=== PATIENT | female | born 1975 | race Caucasian/White ===

== ENCOUNTER 2016-07-30 19:07 | Emergency (ER) | payer OTHER ==
[2016-07-30 19:26] VITALS: BP 135/97; BMI 28.3
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
--- NOTE | 2016-07-30 20:39 | RAD ---
EXAM: Cervical spine x-ray INDICATION: Neck pain COMPARISION: No priors available for comparison TECHNIQUE: AP, lateral, oblique, and odontoid, 5 views FINDINGS: There is normal alignment of the cervical spine. The disc and vertebral body heights are preserved. The facets are intact. The neural foramen are patent. The soft tissues are normal. IMPRESSION: Normal cervical spine x-ray examination Reported By:
[2016-07-30] MEDS ORDERED: TORADOL 60 MG VIAL IM ONE (20:45)
[2016-07-30] MEDS ORDERED: TORADOL 60 MG VIAL ONE (20:54)
== END 2016-07-30 21:35 | disposition home or self-care (01) ==
LOC: ER 19:36
DX: S13.4XXA Sprain of ligaments of cervical spine, initial encounter (principal); R51 Headache; V49.9XXA Car occupant (driver) (passenger) injured in unspecified traffic accident, initial encounter
CPT/HCPCS: 70450; 72050; 96372; 99282; 99283; J1885

== ENCOUNTER 2016-10-27 04:44 | Emergency (ER) | payer SELFPAY ==
[2016-10-27 04:52] VITALS: BP 144/88; BMI 28.3
--- NOTE | 2016-10-27 05:17 | DR.GENAD ---
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 - Family History History of Family Medical Conditions: Yes Family Medical History: Diabetes Mellitus, Cancer, Hypertension - Social History Type of Tobacco Use: Cigarettes Does any household member use tobacco: No Alcohol Use: None Do you use any recreational Drugs:: Yes (PAIN PILLS) Lives With: Family Lives Where: Home - infectious screening In the last 2 months have you had wt loss of >10#?: NO Have you had fever, night sweats or hemotysis?: No Have you traveled outside the country in the last 6 months?: No Isolation: Standard PE - Vital Signs Vitals: Temperature 98.6 F Pulse Rate 94 Respiratory Rate 18 Blood Pressure [Right Arm] 102/68 Blood Pressure 144/88 O2 Sat by Pulse Oximetry 100 - Discharge Plan Condition: Stable - Follow ups/Referrals Follow ups/Referrals: NFD,None [Primary Care Provider] - 3 days - Instructions
== END 2016-10-27 05:00 | disposition left against medical advice (07) ==
LOC: ER 04:44
DX: R50.9 Fever, unspecified (principal)
CPT/HCPCS: 99281

== ENCOUNTER 2016-12-29 11:12 | Emergency (ER) | payer SELFPAY ==
[2016-12-29 11:16] VITALS: BMI 25.7
--- NOTE | 2016-12-29 12:06 | DR.GENAD ---
HPI - PCP Primary Care Physician: [email or web address] - HPI Comment HPI Comment: INITIALY, ONE SWELLING AND NOW IS 3. PATIENT WORSE TODAY. NO FEVR. - Complaint/Symptoms Chief Complaint Doctors Comments: REDNESS PAIN AND PALPABLE CORDS LEFT ELBOW TIMES 2 WEEKS. Chief Complaint:: patient stated she has 3 knots on her left arm. 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 - Family History History of Family Medical Conditions: Yes Family Medical History: Diabetes Mellitus, Cancer, Hypertension - Social History Does patient currently use any type of tobacco product: Yes Have you used tobacco products in the last 12 months: Yes Type of Tobacco Use: Cigarettes How many years tobacco product used: 28 Does any household member use tobacco: No Alcohol Use: None Do you use any recreational Drugs:: Yes (PAIN PILLS) Lives With: Family Lives Where: Home - infectious screening In the last 2 months have you had wt loss of >10#?: NO Have you had fever, night sweats or hemotysis?: No Have you traveled outside the country in the last 6 months?: No Isolation: Standard ROS - Review of Systems Constitutional: Other. negative: Chills, Fever Eyes: No Symptoms Reported ENTM: No Symptoms Reported Respiratoy: No Symptoms Reported Cardiovascular: No Symptoms Reported Gastrointestinal/Abdominal: No Symptoms Reported Genitourinary: No Symptoms Reported Neurological: No Symptoms Reported Musculoskeletal: Left, Arm Integumentary: No Symptoms Reported Hematologic/Lymphatic: No Symptoms Reported Endocrine: No Symptoms Reported All Other Systems: Reviewed and Negative PE - Vital Signs Vitals: Temperature 98.6 F Pulse Rate [Right Brachial] 118 Pulse Rate 130 Respiratory Rate 18 Blood Pressure [Right Arm] 137/87 Blood Pressure 157/98 O2 Sat by Pulse Oximetry 100 - General Limitations: No Limitations General Appearance: Alert - Head Head Exam: Normal Inspection - Eyes Eye exam: Normal Appearance - ENT ENT Exam: Normal External Ear Exam External Ear Exam: Normal External Inspection TM/Canal Exam: Bilateral Normal Nose Exam: Normal Nose Exam Mouth Exam: Normal Inspection Throat Exam: Normal Inspection - Neck Neck Exam: Normal Inspection - Chest Chest Inspection: Symmetric Chest Wall Rise - Respiratory Respiratory Exam: Normal Lung Sounds Bilat Respiratory Exam: Bilateral Clear to Auscultation - Cardiovascular Cardiovascular Exam: Regular Rate, Normal Rhythm, Normal Heart Sounds - Abdominal Exam Abdominal Exam: Normal Bowel Sounds, Soft. negative: Tenderness - Extremities Extremities Exam: Other (REDNESS REDERNESS AND PALPABLE CORD LEFT INNER ELBOW.) - Back Back Exam: Normal Inspection - Neurologic Neurological Exam: Alert, Oriented X3 - Psychiatric Psychiatric Exam: Anxious - Skin Skin Exam: Erythema (LT INNER ELBOW RED AND TENDER.) MDM - Differential Diagnosis Differential Diagnosis: CELLULITIS LT ELBOW, DVT LT ELBOW, ABSCESS LT ELBOW. Course - Treatment Treatment: SEE ORDERS. IV ZOSYN ZND VANCOMYCIN IN ED. PATIENT LEFT ED AFTER ADMITTED TO HOSPITAL. - Education/Counseling Education/Counseling: Patient, Education Educated On: Treatment, Diagnosis ROR - Labs Reviewed Laboratory Results Reviewed?: Yes Result Diagrams: 12/29/16 12:40 12/29/16 12:40 Laboratory: WBC 12.2 X10^3/uL (3.6-10.0) H 12/29/16 12:40 RBC 4.66 X10^6/uL (3.5-5.4) 12/29/16 12:40 Hgb 14.6 g/dL (12.0-16.0) 12/29/16 12:40 Hct 43.3 % (36.0-47.0) 12/29/16 12:40 MCV 92.9 fL (80.0-100.0) 12/29/16 12:40 MCH 31.4 pg (27.0-34.0) 12/29/16 12:40 MCHC 33.8 g/dL (33.0-35.0) 12/29/16 12:40 RDW 13.0 % (11.6-16.5) 12/29/16 12:40 Plt Count 338 X10^3/uL (150.0-450.0) 12/29/16 12:40 MPV 9.5 fL (7.4-11.0) 12/29/16 12:40 Neut % 68.9 % (42.0-75.0) 12/29/16 12:40 Lymph % 23.4 % (21.0-51.0) 12/29/16 12:40 [place] % 5.6 % (0.0-13.0) 12/29/16 12:40 Eos % 1.2 % (0.9-2.9) 12/29/16 12:40 Baso % 0.9 % (0.2-1.0) 12/29/16 12:40 Neut # 8.4 x10^3/uL (2.2-4.8) H 12/29/16 12:40 Lymph # 2.9 X10^3/uL (1.3-2.9) 12/29/16 12:40 [place] # 0.7 x10^3/uL (0.3-0.8) 12/29/16 12:40 Eos # 0.1 x10^3/uL (0.0-0.2) 12/29/16 12:40 Baso # 0.1 X10^3/uL (0.0-0.1) 12/29/16 12:40 Absolute Nucleated RBC 0.0 /100WBC 12/29/16 12:40 D-Dimer 558 ng/mL (0-400) H* 12/29/16 12:40 Sodium 140 mmol/L (136-145) 12/29/16 12:40 Corrected Sodium TNP 12/29/16 12:40 Potassium 3.7 mmol/L (3.5-5.1) 12/29/16 12:40 Chloride 104 mmol/L (98-107) 12/29/16 12:40 Carbon Dioxide 27.9 mmol/L (21-32) 12/29/16 12:40 BUN 11 mg/dL (7-18) 12/29/16 12:40 Creatinine 0.88 mg/dL (0.55-1.02) 12/29/16 12:40 Est GFR (MDRD) Af Amer > 60 (>60) 12/29/16 12:40 Est GFR (MDRD) Non-Af > 60 (>60) 12/29/16 12:40 Glucose 93 mg/dL (65-99) 12/29/16 12:40 Lactic Acid 1.3 mmol/L (0.4-2.0) 12/29/16 12:40 Calcium 9.3 mg/dL (8.5-10.1) 12/29/16 12:40 Corrected Calcium TNP 12/29/16 12:40 Total Bilirubin 0.20 mg/dL (0.2-1.0) 12/29/16 12:40 AST 15 Units/L (15-37) 12/29/16 12:40 ALT 38 Units/L (12-78) 12/29/16 12:40 Alkaline Phosphatase 187 Units/L (46-116) H 12/29/16 12:40 C-Reactive Protein 14.70 mg/L (0-3.0) H 12/29/16 12:40 Total Protein 7.7 g/dL (6.4-8.2) 12/29/16 12:40 Albumin 3.5 g/dL (3.4-5.0) 12/29/16 12:40 Globulin 4.2 g/dL (2.5-4.5) 12/29/16 12:40 Albumin/Globulin Ratio 0.8 Ratio (1.1-2.1) L 12/29/16 12:40 Specimen Type Clean catch urine 12/29/16 16:05 Urine Color Yellow (YELLOW) 12/29/16 16:05 Urine Appearance Clear (CLEAR) 12/29/16 16:05 Urine pH 6.0 (5.0 - 8.0) 12/29/16 16:05 Ur Specific [place] 1.025 (1.000-1.030) 12/29/16 16:05 Urine Protein 2+ (NEGATIVE) 12/29/16 16:05 Urine Glucose (UA) Negative (NEGATIVE) 12/29/16 16:05 Urine Ketones Negative (NEGATIVE) 12/29/16 16:05 Urine Occult Blood 1+ (NEGATIVE) 12/29/16 16:05 Urine Nitrite Negative (NEGATIVE) 12/29/16 16:05 Urine Bilirubin Negative (NEGATIVE) 12/29/16 16:05 Urine Urobilinogen Normal (NORMAL) 12/29/16 16:05 Ur Leukocyte Esterase 1+ (NEGATIVE) 12/29/16 16:05 Urine RBC Rare /HPF (NEGATIVE) 12/29/16 16:05 Urine WBC 0-3 /HPF (NEGATIVE) 12/29/16 16:05 Ur Squamous Epith Cells Few /HPF (NEGATIVE) 12/29/16 16:05 Urine Bacteria Trace /HPF (NEGATIVE) 12/29/16 16:05 Ur Culture Indicated? No/not indicated 12/29/16 16:05 Urine Opiates Screen Negative (NEG=<300) 12/29/16 16:05 Urine Methadone Screen Negative (NEG=<300) 12/29/16 16:05 Ur Barbiturates Screen Negative (NEG=<200) 12/29/16 16:05 Ur Phencyclidine Scrn Negative (NEG=<25) 12/29/16 16:05 Ur Amphetamines Screen Positive (NEG=<1000) A 12/29/16 16:05 U Benzodiazepines Scrn Negative (NEG=<200) 12/29/16 16:05 Urine Cocaine Screen Negative (NEG=<300) 12/29/16 16:05 U Marijuana (THC) Screen Negative (NEG=<50) 12/29/16 16:05 - XRAY XRAY Interpreted by: Radiologist XRAY Findings: REPORT DISCUSS WITH PATIENT. - Diagnosis Discharge Problem: Cellulitis of left elbow - Discharge Plan Disposition: AGAINST MEDICAL ADVICE Condition: Stable - Follow ups/Referrals Follow ups/Referrals: NFD,None [Primary Care Provider] - 3 days - Instructions
[2016-12-29] MEDS ORDERED: TORADOL 30 MG VIAL IVP ONE (12:07)
[2016-12-29] MEDS ORDERED: ZOSYN VIAL 3.375 GM 3.375 GM in NS 100 ML IV + SPIKE MINIBAG* 100 ML IV ONE (12:08)
[2016-12-29] MEDS ORDERED: TORADOL 30 MG VIAL ONE (12:43)
[2016-12-29] MEDS ORDERED: ZOSYN VIAL 3.375 GM IV ONE (12:44)
[2016-12-29] MEDS ORDERED: NS 100 ML IV + SPIKE MINIBAG* 100 ML IV ONE (12:44)
[2016-12-29 13:03] LABS: BASOPHILS # (AUTO) 0.1 X10^3/uL (0.0-0.1); BASOPHILS % (AUTO) 0.9 % (0.2-1.0); EOSINOPHILS # (AUTO) 0.1 x10^3/uL (0.0-0.2); EOSINOPHILS % (AUTO) 1.2 % (0.9-2.9); HEMATOCRIT 43.3 % (36.0-47.0); HEMOGLOBIN 14.6 g/dL (12.0-16.0); LYMPHOCYTES # (AUTO) 2.9 X10^3/uL (1.3-2.9); LYMPHOCYTES % (AUTO) 23.4 % (21.0-51.0); MEAN CORPUSCULAR HEMOGLOBIN 31.4 pg (27.0-34.0); MEAN CORPUSCULAR HGB CONC 33.8 g/dL (33.0-35.0); MEAN CORPUSCULAR VOLUME 92.9 fL (80.0-100.0); MEAN PLATELET VOLUME 9.5 fL (7.4-11.0); MONOCYTES # (AUTO) 0.7 x10^3/uL (0.3-0.8); MONOCYTES % (AUTO) 5.6 % (0.0-13.0); NEUTROPHILS # (AUTO) 8.4 x10^3/uL (2.2-4.8); NEUTROPHILS % (AUTO) 68.9 % (42.0-75.0); PLATELET COUNT 338 X10^3/uL (150.0-450.0); RED BLOOD COUNT 4.66 X10^6/uL (3.5-5.4); WHITE BLOOD COUNT 12.2 X10^3/uL (3.6-10.0)
[2016-12-29 13:11] LABS: ALANINE AMINOTRANSFERASE 38 Units/L (12-78); ALBUMIN 3.5 g/dL (3.4-5.0); ALKALINE PHOSPHATASE 187 Units/L (46-116); ASPARTATE AMINO TRANSFERASE 15 Units/L (15-37); BLOOD UREA NITROGEN 11 mg/dL (7-18); CALCIUM 9.3 mg/dL (8.5-10.1); CARBON DIOXIDE 27.9 mmol/L (21-32); CHLORIDE 104 mmol/L (98-107); CREATININE 0.88 mg/dL (0.55-1.02); SODIUM 140 mmol/L (136-145); TOTAL PROTEIN 7.7 g/dL (6.4-8.2); eGFR BLACK RACES > 60 (>60); eGFR NON BLACK RACES > 60 (>60)
[2016-12-29 13:46] LABS: LACTIC ACID 1.3 mmol/L (0.4-2.0)
--- NOTE | 2016-12-29 14:21 | VAS ---
HISTORY: Left upper extremity pain Study: Left upper extremity venous Doppler Comparison: None Technique: Multiple grayscale sonographic images were obtained. Color duplex Doppler evaluation was p erformed. Findings: Normal flow, compression, phasicity, and augmentation are identified in the left jugular vein, subcla vian vein, axillary vein, brachial veins, cephalic veins, and basilic veins. There is no evidence for deep venous thrombosis in the left upper extremity. Fairly extensive subcutaneous edema and indurati on is present. IMPRESSION: Exam negative for deep venous thrombosis left upper extremity Reported By:
[2016-12-29] MEDS ORDERED: VANCOMYCIN 1 GM PREMIX (ADDVANTAGE) 250 ML IV NR (16:00)
[2016-12-29 16:15] LABS: BILIRUBIN,URINE NEGATIVE (NEGATIVE); BLOOD/HEMOGLOBIN,URINE 1+ (NEGATIVE); GLUCOSE, URINE NEGATIVE (NEGATIVE); KETONES,URINE NEGATIVE (NEGATIVE); LEUKOCYTE ESTERASE ,URINE 1+ (NEGATIVE); NITRITES,URINE NEGATIVE (NEGATIVE); PROTEIN,URINE 2+ (NEGATIVE); UROBILINOGEN,URINE NORMAL (NORMAL)
[2016-12-29 16:40] VITALS: BP 137/87
[2016-12-29 17:00] LABS: APPEARANCE,URINE CLEAR (CLEAR); BACTERIA,URINE TRACE /HPF (NEGATIVE); COLOR,URINE YELLOW (YELLOW); RBC,URINE RARE /HPF (NEGATIVE); SQUAMOUS EPITHELIAL CELL,UR FEW /HPF (NEGATIVE)
[2016-12-29] MEDS ORDERED: NICODERM PATCH 21 MG/24 HR TD SCH (17:00)
[2016-12-29] MEDS ORDERED: ZOFRAN INJ 4 MG VIAL IVP PRN (17:10)
[2016-12-29] MEDS ORDERED: TORADOL 30 MG VIAL IVP PRN (17:10)
[2016-12-29] MEDS ORDERED: D5 NS 1000 ML 1,000 ML IV SCH (18:00)
[2016-12-29] MEDS ORDERED: VANCOMYCIN 1 GM PREMIX (ADDVANTAGE) 250 ML IV SCH (21:00)
[2016-12-29] MEDS ORDERED: ZOSYN VIAL 3.375 GM 3.375 GM in NS 100 ML IV + SPIKE MINIBAG* 100 ML IV SCH (22:00)
== END 2016-12-29 17:15 | disposition left against medical advice (07) ==
LOC: ER 11:27 → MED/SURG 17:05 → OBS 17:05 → UNDOADMIN 17:05
DX: L03.114 Cellulitis of left upper limb (principal)
CPT/HCPCS: 36415; 80053; 80307; 81001; 83605; 85025; 85378; 86140; 87040; 93971; 96365; 96374; 96375; 99282; 99283; A4216; A4222; G0434; J1885; J2543; J3370

== ENCOUNTER 2016-12-31 23:35 | Emergency (ER) | payer SELFPAY ==
[2016-12-31 23:43] VITALS: BP 144/93; BMI 25.7
--- NOTE | 2017-01-01 00:57 | DR.GENAD ---
HPI - HPI Comment HPI Comment: PATIENT ADMIT TO IV DRUG USE. SEEN IN ED 2 DAYS AGO. ADMITTED TO HOSPITAL FOR IV ANTIBIOTIC. LEFT AMA. RETURN TONIGHT WITH INCREASING REDNESS AND PAIN. NO FEVER. - Complaint/Symptoms Chief Complaint Doctors Comments: ABSCESS, CELLULITIS LUE TIMES 2 WEEKS AROUND INNER ELBOW AREA. Chief Complaint:: CELLULITIS TO LEFT AC Self Treatment fo Chief Complaint: OXYCODONE 30MG TAB - Nurses notes reviewed Nurses Notes Review: Yes - Source History Provided: Patient - Mode of Arrival Mode of Arrival: Ambulatory - Timing Onset of Chief Complaint: 12/17/16 Came on: Gradually - Duration Duration: Constant Duration: Days - Severity Severity: Moderate PMH - PMH Past Medical History: Yes Past Medical History: Hypertension Past Surgical History: Yes Surgical History: 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 Past Surgical History Comment: TUBALIGATION; EGD; COLONOSCOPY - Family History History of Family Medical Conditions: No Family Medical History: Diabetes Mellitus, [place], Hypertension - Social History Does patient currently use any type of tobacco product: Yes Have you used tobacco products in the last 12 months: Yes Type of Tobacco Use: Cigarettes How many years tobacco product used: 12 Alcohol Use: None Do you use any recreational Drugs:: Yes Lives With: Spouse Lives Where: Home - infectious screening In the last 2 months have you had wt loss of >10#?: NO Have you had fever, night sweats or hemotysis?: No Have you traveled outside the country in the last 6 months?: No Isolation: Standard ROS - Review of Systems Constitutional: Malaise, Weakness, Fatigue. negative: Chills, Fever Eyes: No Symptoms Reported. negative: Eye Pain, Discharge ENTM: No Symptoms Reported. negative: Ear Pain, Nose Discharge, Nose Congestion , Throat Pain Respiratoy: No Symptoms Reported, Non-Productive Cough, Short of Breath. negative: Productive Cough, Wheezing, Hemoptysis Cardiovascular: No Symptoms Reported. negative: Chest Pain, Palpitations Gastrointestinal/Abdominal: No Symptoms Reported. negative: Constipation, Diarrhea, Nausea, Vomiting Genitourinary: No Symptoms Reported. negative: Dysuria, Frequency, Hematuria Neurological: No Symptoms Reported, Headache, Weakness, Dizziness Musculoskeletal: Muscle Pain Integumentary: Change in Color, Other (ABSCESS AND CELLULITIS LEFT INNER ELBOW GOING INTO ARM AND FOREARM.) Hematologic/Lymphatic: No Symptoms Reported Endocrine: No Symptoms Reported All Other Systems: Reviewed and Negative PE - Vital Signs Vitals: Temperature 98.3 F Pulse Rate 103 Respiratory Rate 22 Blood Pressure [Right Arm] 137/87 Blood Pressure 144/93 O2 Sat by Pulse Oximetry 99 - General Limitations: No Limitations General Appearance: Alert - Head Head Exam: Normal Inspection - Eyes Eye exam: Normal Appearance - ENT ENT Exam: Normal External Ear Exam External Ear Exam: Normal External Inspection TM/Canal Exam: Bilateral Normal Nose Exam: Normal Nose Exam Mouth Exam: Normal Inspection Throat Exam: Normal Inspection - Neck Neck Exam: Normal Inspection - Chest Chest Inspection: Symmetric Chest Wall Rise - Respiratory Respiratory Exam: Normal Lung Sounds Bilat Respiratory Exam: Bilateral Clear to Auscultation - Cardiovascular Cardiovascular Exam: Regular Rate, Normal Rhythm, Normal Heart Sounds - Abdominal Exam Abdominal Exam: Normal Bowel Sounds, Soft. negative: Tenderness - Extremities Extremities Exam: Tenderness (REDNESS AND TENDERNESS LT ELBOW.), Joint Swelling (LT ELBOW.) - Back Back Exam: Normal Inspection - Neurologic Neurological Exam: Alert, Oriented X3, CN II-XII Intact, Normal Gait, Reflexes Normal. negative: Motor Sensory Deficit - Psychiatric Psychiatric Exam: Normal Affect, Normal Mood - Skin Skin Exam: Erythema MDM - Additional Information Additional Information Obtained From: Family - Differential Diagnosis Differential Diagnosis: ABSCESS AND CELLULITIS LUE. Course - Treatment Treatment: SEE ORDERS. PATIENT LEFT AMA BEFORE ADMISSION TO HOSPITAL. - Education/Counseling Education/Counseling: Patient, Family, Education Educated On: Treatment, Diagnosis ROR - Labs Reviewed Laboratory Results Reviewed?: Yes Result Diagrams: 01/01/17 01:35 01/01/17 01:35 Laboratory: WBC 12.1 X10^3/uL (3.6-10.0) H 01/01/17 01:35 RBC 4.12 X10^6/uL (3.5-5.4) 01/01/17 01:35 Hgb 12.8 g/dL (12.0-16.0) 01/01/17 01:35 Hct 37.7 % (36.0-47.0) 01/01/17 01:35 MCV 91.6 fL (80.0-100.0) 01/01/17 01:35 MCH 31.1 pg (27.0-34.0) 01/01/17 01:35 MCHC 34.0 g/dL (33.0-35.0) 01/01/17 01:35 RDW 13.1 % (11.6-16.5) 01/01/17 01:35 Plt Count 358 X10^3/uL (150.0-450.0) 01/01/17 01:35 MPV 9.2 fL (7.4-11.0) 01/01/17 01:35 Neut % 63.8 % (42.0-75.0) 01/01/17 01:35 Lymph % 27.5 % (21.0-51.0) 01/01/17 01:35 [place] % 5.7 % (0.0-13.0) 01/01/17 01:35 Eos % 2.1 % (0.9-2.9) 01/01/17 01:35 Baso % 0.9 % (0.2-1.0) 01/01/17 01:35 Neut # 7.7 x10^3/uL (2.2-4.8) H 01/01/17 01:35 Lymph # 3.3 X10^3/uL (1.3-2.9) H 01/01/17 01:35 [place] # 0.7 x10^3/uL (0.3-0.8) 01/01/17 01:35 Eos # 0.3 x10^3/uL (0.0-0.2) H 01/01/17 01:35 Baso # 0.1 X10^3/uL (0.0-0.1) 01/01/17 01:35 Absolute Nucleated RBC 0.0 /100WBC 01/01/17 01:35 Sodium 140 mmol/L (136-145) 01/01/17 01:35 Corrected Sodium TNP 01/01/17 01:35 Potassium 3.2 mmol/L (3.5-5.1) L 01/01/17 01:35 Chloride 101 mmol/L (98-107) 01/01/17 01:35 Carbon Dioxide 30.3 mmol/L (21-32) 01/01/17 01:35 BUN 9 mg/dL (7-18) 01/01/17 01:35 Creatinine 0.86 mg/dL (0.55-1.02) 01/01/17 01:35 Est GFR (MDRD) Af Amer > 60 (>60) 01/01/17 01:35 Est GFR (MDRD) Non-Af > 60 (>60) 01/01/17 01:35 Glucose 100 mg/dL (65-99) H 01/01/17 01:35 Calcium 9.2 mg/dL (8.5-10.1) 01/01/17 01:35 Corrected Calcium 10.0 mg/dL (8.5-10.1) 01/01/17 01:35 Total Bilirubin 0.20 mg/dL (0.2-1.0) 01/01/17 01:35 AST 16 Units/L (15-37) 01/01/17 01:35 ALT 26 Units/L (12-78) 01/01/17 01:35 Alkaline Phosphatase 136 Units/L (46-116) H 01/01/17 01:35 Total Protein 7.2 g/dL (6.4-8.2) 01/01/17 01:35 Albumin 3.0 g/dL (3.4-5.0) L 01/01/17 01:35 Globulin 4.2 g/dL (2.5-4.5) 01/01/17 01:35 Albumin/Globulin Ratio 0.7 Ratio (1.1-2.1) L 01/01/17 01:35 Specimen Type Clean catch urine 01/01/17 03:30 Urine Color Yellow (YELLOW) 01/01/17 03:30 Urine Appearance Clear (CLEAR) 01/01/17 03:30 Urine pH 6.0 (5.0 - 8.0) 01/01/17 03:30 Ur Specific [place] 1.015 (1.000-1.030) 01/01/17 03:30 Urine Protein Negative (NEGATIVE) 01/01/17 03:30 Urine Glucose (UA) Negative (NEGATIVE) 01/01/17 03:30 Urine Ketones Negative (NEGATIVE) 01/01/17 03:30 Urine Occult Blood 1+ (NEGATIVE) 01/01/17 03:30 Urine Nitrite Negative (NEGATIVE) 01/01/17 03:30 Urine Bilirubin Negative (NEGATIVE) 01/01/17 03:30 Urine Urobilinogen Normal (NORMAL) 01/01/17 03:30 Ur Leukocyte Esterase Negative (NEGATIVE) 01/01/17 03:30 Urine RBC 0-3 /HPF (NEGATIVE) 01/01/17 03:30 Urine WBC 0-3 /HPF (NEGATIVE) 01/01/17 03:30 Ur Squamous Epith Cells Rare /HPF (NEGATIVE) 01/01/17 03:30 Urine Bacteria Negative /HPF (NEGATIVE) 01/01/17 03:30 Ur Culture Indicated? No/not indicated 01/01/17 03:30 Urine Opiates Screen Negative (NEG=<300) 01/01/17 03:30 Urine Methadone Screen Negative (NEG=<300) 01/01/17 03:30 Ur Barbiturates Screen Negative (NEG=<200) 01/01/17 03:30 Ur Phencyclidine Scrn Negative (NEG=<25) 01/01/17 03:30 Ur Amphetamines Screen Negative (NEG=<1000) 01/01/17 03:30 U Benzodiazepines Scrn Negative (NEG=<200) 01/01/17 03:30 Urine Cocaine Screen Negative (NEG=<300) 01/01/17 03:30 U Marijuana (THC) Screen Negative (NEG=<50) 01/01/17 03:30 - XRAY XRAY Interpreted by: Radiologist - Diagnosis Discharge Problem: Cellulitis of left elbow - Discharge Plan Disposition: 07 AGAINST MEDICAL ADVICE Condition: Stable - Follow ups/Referrals Follow ups/Referrals: NFD,None [Primary Care Provider] - 3 days - Instructions
[2017-01-01] MEDS ORDERED: CLEOCIN 300 MG IV PREMIX 300 MG/50 ML BAG IV ONE ×2 (00:59→01:12)
[2017-01-01] MEDS ORDERED: ZOSYN VIAL 3.375 GM IV SCH (01:00)
[2017-01-01] MEDS ORDERED: NS 1000 ML 1,000 ML IV SCH (01:00)
[2017-01-01] MEDS ORDERED: TORADOL 30 MG VIAL IVP PRN (01:02)
[2017-01-01] MEDS ORDERED: NS 1000 ML 1,000 ML ONE (01:12)
[2017-01-01] MEDS ORDERED: ZOSYN VIAL 3.375 GM IV ONE (01:12)
[2017-01-01] MEDS ORDERED: TORADOL 30 MG VIAL ONE (01:12)
[2017-01-01] MEDS ORDERED: NS 100 ML IV + SPIKE MINIBAG* 100 ML IV ONE (01:13)
[2017-01-01 02:02] LABS: ALANINE AMINOTRANSFERASE 26 Units/L (12-78); ALKALINE PHOSPHATASE 136 Units/L (46-116); ASPARTATE AMINO TRANSFERASE 16 Units/L (15-37); BLOOD UREA NITROGEN 9 mg/dL (7-18); CALCIUM 9.2 mg/dL (8.5-10.1); CARBON DIOXIDE 30.3 mmol/L (21-32); CHLORIDE 101 mmol/L (98-107); CREATININE 0.86 mg/dL (0.55-1.02); SODIUM 140 mmol/L (136-145); TOTAL PROTEIN 7.2 g/dL (6.4-8.2); eGFR BLACK RACES > 60 (>60); eGFR NON BLACK RACES > 60 (>60)
[2017-01-01 02:10] LABS: BASOPHILS # (AUTO) 0.1 X10^3/uL (0.0-0.1); BASOPHILS % (AUTO) 0.9 % (0.2-1.0); EOSINOPHILS # (AUTO) 0.3 x10^3/uL (0.0-0.2); EOSINOPHILS % (AUTO) 2.1 % (0.9-2.9); HEMATOCRIT 37.7 % (36.0-47.0); HEMOGLOBIN 12.8 g/dL (12.0-16.0); LYMPHOCYTES # (AUTO) 3.3 X10^3/uL (1.3-2.9); LYMPHOCYTES % (AUTO) 27.5 % (21.0-51.0); MEAN CORPUSCULAR HEMOGLOBIN 31.1 pg (27.0-34.0); MEAN CORPUSCULAR VOLUME 91.6 fL (80.0-100.0); MEAN PLATELET VOLUME 9.2 fL (7.4-11.0); MONOCYTES # (AUTO) 0.7 x10^3/uL (0.3-0.8); MONOCYTES % (AUTO) 5.7 % (0.0-13.0); NEUTROPHILS # (AUTO) 7.7 x10^3/uL (2.2-4.8); NEUTROPHILS % (AUTO) 63.8 % (42.0-75.0); PLATELET COUNT 358 X10^3/uL (150.0-450.0); RED BLOOD COUNT 4.12 X10^6/uL (3.5-5.4); RED CELL DISTRIBUTION WIDTH 13.1 % (11.6-16.5); WHITE BLOOD COUNT 12.1 X10^3/uL (3.6-10.0)
[2017-01-01] MEDS ORDERED: NICODERM PATCH 21 MG/24 HR TD SCH (03:00)
[2017-01-01 04:03] LABS: BILIRUBIN,URINE NEGATIVE (NEGATIVE); BLOOD/HEMOGLOBIN,URINE 1+ (NEGATIVE); GLUCOSE, URINE NEGATIVE (NEGATIVE); KETONES,URINE NEGATIVE (NEGATIVE); LEUKOCYTE ESTERASE ,URINE NEGATIVE (NEGATIVE); NITRITES,URINE NEGATIVE (NEGATIVE); PROTEIN,URINE NEGATIVE (NEGATIVE); UROBILINOGEN,URINE NORMAL (NORMAL)
[2017-01-01 04:14] LABS: APPEARANCE,URINE CLEAR (CLEAR); BACTERIA,URINE NEGATIVE /HPF (NEGATIVE); COLOR,URINE YELLOW (YELLOW); RBC,URINE 0-3 /HPF (NEGATIVE); SQUAMOUS EPITHELIAL CELL,UR RARE /HPF (NEGATIVE)
== END 2017-01-01 03:56 | disposition left against medical advice (07) ==
LOC: ER 23:45
DX: L03.114 Cellulitis of left upper limb (principal)
CPT/HCPCS: 36415; 80053; 80307; 81001; 85025; 87040; 96365; 96367; 96374; 96375; 99283; A4222; S0077; G0434; J1885; J2543

== ENCOUNTER 2017-07-05 15:17 | Emergency (ER) | payer SELFPAY ==
[2017-07-05] MEDS ORDERED: XYLOCAINE 1% and EPINEPHRINE 1:100,000 ONE (15:30)
[2017-07-05 15:37] VITALS: BP 140/86; BMI 27.4
--- NOTE | 2017-07-05 15:56 | DR.GENAD ---
HPI - PCP Primary Care Physician: NFD - Complaint/Symptoms Chief Complaint Doctors Comments: Patient presented with laceration 2cm to the left forearm distally. Chief Complaint:: PATIENT STATED THAT SHE DOES NOT WANT TO BE HERE ANYMORE. SHE STATED THAT THE REASON SHE DONE IT WAS BECAUSE [facility] - Source History Provided: EMS - Mode of Arrival Mode of Arrival: EMS - Timing Onset of Chief Complaint: 07/05/17 PMH - PMH Past Medical History: Yes Past Medical History: Diabetes, Hypertension Past Surgical History: Yes Surgical History: 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 - Family History History of Family Medical Conditions: Yes Family Medical History: Diabetes Mellitus, [place], Hypertension - Social History Does patient currently use any type of tobacco product: Yes Have you used tobacco products in the last 12 months: Yes Type of Tobacco Use: Cigarettes Does any household member use tobacco: No Do you use any recreational Drugs:: Yes Lives With: Family Lives Where: Home - infectious screening In the last 2 months have you had wt loss of >10#?: NO Have you had fever, night sweats or hemotysis?: No Have you traveled outside the country in the last 6 months?: No Isolation: Standard ROS - Review of Systems Eyes: No Symptoms Reported ENTM: No Symptoms Reported Respiratoy: No Symptoms Reported Cardiovascular: No Symptoms Reported Gastrointestinal/Abdominal: No Symptoms Reported Genitourinary: No Symptoms Reported Neurological: No Symptoms Reported Musculoskeletal: No Symptoms Reported Integumentary: Lesions (2cm superficial laceration to volar surface of left forearm) Hematologic/Lymphatic: No Symptoms Reported Endocrine: No Symptoms Reported Psychiatric: No Symptoms Reported All Other Systems: Reviewed and Negative PE - Vital Signs Vitals: Temperature 98.3 F Pulse Rate 108 Respiratory Rate 22 Blood Pressure [Right Arm] 137/87 Blood Pressure 140/86 O2 Sat by Pulse Oximetry 100 - General Limitations: No Limitations General Appearance: Alert, In No Apparent Distress, Appears Intoxicated - Head Head Exam: Atraumatic - Eyes Eye exam: Normal Appearance, PERRL, EOMI - ENT ENT Exam: Normal Exam, Normal Oropharynx External Ear Exam: Normal External Inspection TM/Canal Exam: Bilateral Normal Nose Exam: Normal Nose Exam, Sinus Tenderness Mouth Exam: Normal Inspection Throat Exam: Normal Inspection - Neck Neck Exam: Normal Inspection, Full ROM - Chest Chest Inspection: Normal Inspection - Respiratory Respiratory Exam: Normal Lung Sounds Bilat Respiratory Exam: Bilateral Clear to Auscultation - Cardiovascular Cardiovascular Exam: Regular Rate, Normal Rhythm - Abdominal Exam Abdominal Exam: Normal Inspection, Normal Bowel Sounds Abdominal Tenderness: negative: RUQ, RLQ, LUQ, LLQ, Epigastrium, Suprapubic, Diffuse, Mild, Moderate, Severe, Other - Extremities Extremities Exam: Normal Inspection, Full ROM - Back Back Exam: Normal Inspection - Neurologic Neurological Exam: Alert, Oriented X3, CN II-XII Intact - Psychiatric Psychiatric Exam: Normal Affect - Skin Skin Exam: Warm, Dry, Intact (A 2cm superficial laceration to left forearm) Course - Reevaluation 1st: Improved Procedures - Laceration/Wound Repair Left Forearm Wound Length (cm): 2 Wound's Depth, Shape: Superficial, Linear Wound Explored: clean Betadine Prep?: Yes Anesthesia: 1% Lidocaine w/ Epi (3) Wound Debrided: minimal Suture Size/Type: 4:0 (monosoft) - Diagnosis Discharge Problem: superficial laceration left forearm - Discharge Plan Condition: Stable - Follow ups/Referrals Follow ups/Referrals: NFD,None [Primary Care Provider] - 3 days - Instructions
[2017-07-05] MEDS ORDERED: ADACEL TDaP IM ONE ×2 (16:14→16:16)
== END 2017-07-05 16:42 ==
LOC: ER 15:26
PROC: 0XQ9XZZ Repair Left Upper Arm, External Approach (ICD-10-PCS; principal; 2017-07-05)
DX: S51.812A Laceration without foreign body of left forearm, initial encounter (principal); W27.2XXA Contact with scissors, initial encounter; Y92.149 Unspecified place in prison as the place of occurrence of the external cause
CPT/HCPCS: 12001; 90471; 99282; 99283; J2001

== ENCOUNTER 2017-07-18 12:40 | Emergency (ER) | payer OTHER ==
[2017-07-18 12:54] VITALS: BMI 28.3
[2017-07-18] MEDS ORDERED: ZANTAC PO ONE ×2 (13:03→13:04)
[2017-07-18 13:27] LABS: BASOPHILS # (AUTO) 0.1 X10^3/uL (0.0-0.1); BASOPHILS % (AUTO) 0.7 % (0.2-1.0); EOSINOPHILS # (AUTO) 0.2 x10^3/uL (0.0-0.2); EOSINOPHILS % (AUTO) 2.1 % (0.9-2.9); HEMOGLOBIN 15.2 g/dL (12.0-16.0); LYMPHOCYTES # (AUTO) 2.1 X10^3/uL (1.3-2.9); LYMPHOCYTES % (AUTO) 25.4 % (21.0-51.0); MEAN CORPUSCULAR HEMOGLOBIN 31.2 pg (27.0-34.0); MEAN CORPUSCULAR HGB CONC 35.4 g/dL (33.0-35.0); MEAN CORPUSCULAR VOLUME 88.1 fL (80.0-100.0); MEAN PLATELET VOLUME 10.2 fL (7.4-11.0); MONOCYTES # (AUTO) 0.4 x10^3/uL (0.3-0.8); MONOCYTES % (AUTO) 4.4 % (0.0-13.0); NEUTROPHILS # (AUTO) 5.6 x10^3/uL (2.2-4.8); NEUTROPHILS % (AUTO) 67.4 % (42.0-75.0); PLATELET COUNT 213 X10^3/uL (150.0-450.0); RED BLOOD COUNT 4.88 X10^6/uL (3.5-5.4); RED CELL DISTRIBUTION WIDTH 12.3 % (11.6-16.5); WHITE BLOOD COUNT 8.2 X10^3/uL (3.6-10.0)
[2017-07-18 13:30] LABS: SERUM PREGNANCY TEST, QUAL NEGATIVE <10 mIU/mL
[2017-07-18 13:33] LABS: ALANINE AMINOTRANSFERASE 24 Units/L (12-78); ALKALINE PHOSPHATASE 114 Units/L (46-116); ASPARTATE AMINO TRANSFERASE 15 Units/L (15-37); BLOOD UREA NITROGEN 14 mg/dL (7-18); CARBON DIOXIDE 26.5 mmol/L (21-32); CHLORIDE 106 mmol/L (98-107); CREATININE 0.74 mg/dL (0.55-1.02); SODIUM 142 mmol/L (136-145); TOTAL PROTEIN 8.4 g/dL (6.4-8.2); eGFR BLACK RACES > 60 (>60); eGFR NON BLACK RACES > 60 (>60)
[2017-07-18 13:34] LABS: BLOOD ALCOHOL < 3 mg/dL (0-19.9)
[2017-07-18 14:02] LABS: SALICYLATE < 2.8 mg/dL (2.8-20)
[2017-07-18 14:03] LABS: BILIRUBIN,URINE NEGATIVE (NEGATIVE); BLOOD/HEMOGLOBIN,URINE NEGATIVE (NEGATIVE); GLUCOSE, URINE NEGATIVE (NEGATIVE); KETONES,URINE NEGATIVE (NEGATIVE); LEUKOCYTE ESTERASE ,URINE NEGATIVE (NEGATIVE); NITRITES,URINE NEGATIVE (NEGATIVE); PROTEIN,URINE 1+ (NEGATIVE); UROBILINOGEN,URINE NORMAL (NORMAL)
[2017-07-18 14:12] LABS: APPEARANCE,URINE CLEAR (CLEAR); COLOR,URINE YELLOW (YELLOW)
[2017-07-18 14:13] LABS: AMORPHOUS SEDIMENT,UR 1+ /HPF (NEGATIVE); BACTERIA,URINE TRACE /HPF (NEGATIVE); MUCUS,URINE FEW /HPF (NEGATIVE); RBC,URINE NONE SEEN /HPF (NONE SEEN); SQUAMOUS EPITHELIAL CELL,UR RARE /HPF (NEGATIVE)
[2017-07-18] MEDS ORDERED: ZOFRAN TAB 4 MG ONE (15:12)
[2017-07-18] MEDS ORDERED: ZOFRAN TAB 4 MG PO ONE (15:14)
--- NOTE | 2017-07-18 16:44 | DR.GENAD ---
HPI - PCP Primary Care Physician: NFD - HPI Comment HPI Comment: REST OF HISTORY BELOW UNDER CHIEF COMPLAINT. DENIES HOMICIDAL IDEATIONS. PATIENT HAVE ATTEMPTED SUICIDE TIMES 2 PREVIOUSLY BY CUTTING HER WRIST. PLAN THIS TIME IS DRUG OVERDOSE. 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 Chief Complaint:: PATIENT WAS AT THE COURT HOUSE AND WENT INTO THE RESTROOM AND FOUND SOME EDILBERTO-KLEEN BOWL ADMITTING REPRESENTATIVE. SHE STATED THAT SHE WAS ONLY TOOK TWO SWALLOW. SHE STATED THAT SHE NO LONGER WANTS TO BE HERE ANYMORE. SHE STATED THAT SHE DOES NOT RECALL WHAT TIME THAT IT THIS TOOK PLACE BUT EMS WAS DISPATCHED TO THE [facility] AT 1218. SHE STATED THAT HER STOMACH WAS BURNING. - Nurses notes reviewed Nurses Notes Review: Yes - Source History Provided: Patient, EMS - Mode of Arrival Mode of Arrival: EMS - Timing Onset of Chief Complaint: 07/18/17 Came on: Suddenly - Duration Duration: Constant Duration: Minutes - Severity Severity: Moderate PMH - PMH Past Medical History: Yes Past Medical History: Anxiety, Diabetes, Hypertension Past Surgical History: Yes Surgical History: 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 - Family History History of Family Medical Conditions: Yes Family Medical History: Diabetes Mellitus, [place], Hypertension - Social History Does patient currently use any type of tobacco product: Yes Have you used tobacco products in the last 12 months: Yes Type of Tobacco Use: Cigarettes Does any household member use tobacco: No Alcohol Use: None Do you use any recreational Drugs:: No (DENIES) Lives With: Other Lives Where: [facility] - infectious screening In the last 2 months have you had wt loss of >10#?: NO Have you had fever, night sweats or hemotysis?: No Have you traveled outside the country in the last 6 months?: No Isolation: Standard ROS - Review of Systems Constitutional: No Symptoms Reported Eyes: No Symptoms Reported ENTM: No Symptoms Reported Respiratoy: No Symptoms Reported Cardiovascular: No Symptoms Reported Gastrointestinal/Abdominal: No Symptoms Reported Genitourinary: No Symptoms Reported Neurological: No Symptoms Reported Musculoskeletal: No Symptoms Reported Integumentary: No Symptoms Reported Hematologic/Lymphatic: No Symptoms Reported Endocrine: No Symptoms Reported Psychiatric: Depression, Suicidal. negative: Hallucinations All Other Systems: Reviewed and Negative Unable to Obtain Due To: Altered mental status PE - Vital Signs Vitals: Temperature 97.9 F Pulse Rate [Left Brachial] 119 Pulse Rate 108 Respiratory Rate 17 Blood Pressure [Left Arm] 133/92 Blood Pressure [Right Arm] 137/87 Blood Pressure 145/88 O2 Sat by Pulse Oximetry 99 - General Limitations: No Limitations General Appearance: Alert - Head Head Exam: Normal Inspection - Eyes Eye exam: Normal Appearance - ENT ENT Exam: Normal External Ear Exam External Ear Exam: Normal External Inspection TM/Canal Exam: Bilateral Normal Nose Exam: Normal Nose Exam Mouth Exam: Normal Inspection Throat Exam: Normal Inspection - Neck Neck Exam: Trachea Midline - Chest Chest Inspection: Symmetric Chest Wall Rise - Respiratory Respiratory Exam: Normal Lung Sounds Bilat Respiratory Exam: Bilateral Clear to Auscultation - Cardiovascular Cardiovascular Exam: Regular Rate, Normal Rhythm, Normal Heart Sounds - Abdominal Exam Abdominal Exam: Normal Bowel Sounds, Soft. negative: Tenderness - Extremities Extremities Exam: Normal Inspection - Back Back Exam: Normal Inspection - Neurologic Neurological Exam: Alert, Oriented X3. negative: Motor Sensory Deficit - Psychiatric Psychiatric Exam: Flat Affect - Skin Skin Exam: Normal Color MDM - Differential Diagnosis Differential Diagnosis: SUICIDAL GESTURE, DEPRESION Course - Treatment Treatment: SEE ORDERS. PATIENT OBSERVE IN ED STILL MEDICALLY CLEAN. THEN MENTAL HEALTH CONSULT WAS OBTAIN. - Consultation Consultation Comments: PATIENT MEDICALLY CLEAR. MENTAL HEALTH CONSULT. MENTAL HEALTH MENTAL HEALTH NURSE HERE IN ED TO EVALUATE PATIENT. PATIENT TO RETURN TO [facility]. PSYCH CONSULT WILL BE ARRANGE IN [facility]. ROR - Labs Reviewed Laboratory Results Reviewed?: Yes Result Diagrams: 07/18/17 13:08 07/18/17 13:08 Laboratory: WBC 8.2 X10^3/uL (3.6-10.0) 07/18/17 13:08 RBC 4.88 X10^6/uL (3.5-5.4) 07/18/17 13:08 Hgb 15.2 g/dL (12.0-16.0) 07/18/17 13:08 Hct 43.0 % (36.0-47.0) 07/18/17 13:08 MCV 88.1 fL (80.0-100.0) 07/18/17 13:08 MCH 31.2 pg (27.0-34.0) 07/18/17 13:08 MCHC 35.4 g/dL (33.0-35.0) H 07/18/17 13:08 RDW 12.3 % (11.6-16.5) 07/18/17 13:08 Plt Count 213 X10^3/uL (150.0-450.0) 07/18/17 13:08 MPV 10.2 fL (7.4-11.0) 07/18/17 13:08 Neut % (Auto) 67.4 % (42.0-75.0) 07/18/17 13:08 Lymph % (Auto) 25.4 % (21.0-51.0) 07/18/17 13:08 [place] % (Auto) 4.4 % (0.0-13.0) 07/18/17 13:08 Eos % (Auto) 2.1 % (0.9-2.9) 07/18/17 13:08 Baso % (Auto) 0.7 % (0.2-1.0) 07/18/17 13:08 Neut # (Auto) 5.6 x10^3/uL (2.2-4.8) H 07/18/17 13:08 Lymph # (Auto) 2.1 X10^3/uL (1.3-2.9) 07/18/17 13:08 [place] # (Auto) 0.4 x10^3/uL (0.3-0.8) 07/18/17 13:08 Eos # (Auto) 0.2 x10^3/uL (0.0-0.2) 07/18/17 13:08 Baso # (Auto) 0.1 X10^3/uL (0.0-0.1) 07/18/17 13:08 Absolute Nucleated RBC 0.0 /100WBC 07/18/17 13:08 Sodium 142 mmol/L (136-145) 07/18/17 13:08 Corrected Sodium TNP 07/18/17 13:08 Potassium 3.8 mmol/L (3.5-5.1) 07/18/17 13:08 Chloride 106 mmol/L (98-107) 07/18/17 13:08 Carbon Dioxide 26.5 mmol/L (21-32) 07/18/17 13:08 BUN 14 mg/dL (7-18) 07/18/17 13:08 Creatinine 0.74 mg/dL (0.55-1.02) 07/18/17 13:08 Est GFR (MDRD) Af Amer > 60 (>60) 07/18/17 13:08 Est GFR (MDRD) Non-Af > 60 (>60) 07/18/17 13:08 Glucose 102 mg/dL (65-99) H 07/18/17 13:08 Calcium 9.0 mg/dL (8.5-10.1) 07/18/17 13:08 Corrected Calcium TNP 07/18/17 13:08 Total Bilirubin 0.40 mg/dL (0.2-1.0) 07/18/17 13:08 AST 15 Units/L (15-37) 07/18/17 13:08 ALT 24 Units/L (12-78) 07/18/17 13:08 Alkaline Phosphatase 114 Units/L (46-116) 07/18/17 13:08 Total Protein 8.4 g/dL (6.4-8.2) H 07/18/17 13:08 Albumin 4.0 g/dL (3.4-5.0) 07/18/17 13:08 Globulin 4.4 g/dL (2.5-4.5) 07/18/17 13:08 Albumin/Globulin Ratio 0.9 Ratio (1.1-2.1) L 07/18/17 13:08 HCG, Qual Negative <10 mIU/mL 07/18/17 13:08 Specimen Type Clean catch urine 07/18/17 13:28 Urine Color Yellow (YELLOW) 07/18/17 13:28 Urine Appearance Clear (CLEAR) 07/18/17 13:28 Urine pH 5.0 (5.0 - 8.0) 07/18/17 13:28 Ur Specific [place] 1.015 (1.000-1.030) 07/18/17 13:28 Urine Protein 1+ (NEGATIVE) 07/18/17 13:28 Urine Glucose (UA) Negative (NEGATIVE) 07/18/17 13:28 Urine Ketones Negative (NEGATIVE) 07/18/17 13:28 Urine Occult Blood Negative (NEGATIVE) 07/18/17 13:28 Urine Nitrite Negative (NEGATIVE) 07/18/17 13:28 Urine Bilirubin Negative (NEGATIVE) 07/18/17 13:28 Urine Urobilinogen Normal (NORMAL) 07/18/17 13:28 Ur Leukocyte Esterase Negative (NEGATIVE) 07/18/17 13:28 Urine RBC None seen /HPF (NONE SEEN) 07/18/17 13:28 Urine WBC 0-2 /HPF (NONE SEEN) 07/18/17 13:28 Ur Squamous Epith Cells Rare /HPF (NEGATIVE) 07/18/17 13:28 Amorphous Sediment 1+ /HPF (NEGATIVE) 07/18/17 13:28 Urine Bacteria Trace /HPF (NEGATIVE) 07/18/17 13:28 Urine Mucus Few /HPF (NEGATIVE) 07/18/17 13:28 Ur Culture Indicated? No/not indicated 07/18/17 13:28 Salicylates < 2.8 mg/dL (2.8-20) L 07/18/17 13:08 Urine Opiates Screen Negative (NEG=<300) 07/18/17 13:28 Urine Methadone Screen Negative (NEG=<300) 07/18/17 13:28 Acetaminophen 0.0 ug/mL (10-30) L 07/18/17 13:08 Ur Barbiturates Screen Negative (NEG=<200) 07/18/17 13:28 Ur Phencyclidine Scrn Negative (NEG=<25) 07/18/17 13:28 Ur Amphetamines Screen Negative (NEG=<1000) 07/18/17 13:28 U Benzodiazepines Scrn Negative (NEG=<200) 07/18/17 13:28 Urine Cocaine Screen Negative (NEG=<300) 07/18/17 13:28 U Marijuana (THC) Screen Negative (NEG=<50) 07/18/17 13:28 Ethyl Alcohol mg/dL < 3 mg/dL (0-19.9) 07/18/17 13:08 - XRAY XRAY Interpreted by: Radiologist XRAY Findings: REPORT DISCUSS WITH PATIENT. - EKG Rhythm: NSR (EKG NOTED) - Diagnosis Discharge Problem: Suicide gesture Qualifiers: Encounter type: initial encounter Qualified Code(s): X83.8XXA - Intentional self-harm by other specified means, initial encounter Depression Qualifiers: Depression Type: unspecified Qualified Code(s): F32.9 - Major depressive disorder, single episode, unspecified - Discharge Plan Disposition: 05 XFER OTHER Condition: Stable Prescriptions: Paroxetine HCl [Paxil] 20 mg PO DAILY #30 tab - Follow ups/Referrals Follow ups/Referrals: NFD,None [Primary Care Provider] - 3 days - Instructions Instructions: Living With Depression, Suicidal Feelings: How to Help Yourself Additional Instructions: RETURN TO ED IF WORSE. MENTAL HEALTH FOLLOW UP AND PSYCH EVALUATION THIS WEEK.
[2017-07-18 16:53] VITALS: BP 133/92
== END 2017-07-18 17:02 | disposition short-term general hospital (02) ==
LOC: ER 12:46
DX: F32.9 Major depressive disorder, single episode, unspecified (principal); X83.8XXA Intentional self-harm by other specified means, initial encounter; R94.31 Abnormal electrocardiogram [ECG] [EKG]
CPT/HCPCS: 36415; 80053; 80307; 81001; 84703; 85025; 93005; 93010; 99285; S0181; G0434; G6038; G6039; G6040